=== PATIENT | male | born 1975 | race African-American/Black ===

== ENCOUNTER 2021-10-28 23:19 | Emergency (ER) | payer BC, OTHER, SELFPAY ==
--- NOTE | ~2021-10-28 | XR_ITS ---
EXAMINATION: XR chest 2V DATE: 10/28/2021 23:42 INDICATION: Shortness of breath and leg swelling TECHNIQUE: PA and lateral views of the chest were obtained. COMPARISON: Chest radiograph dated 02/24/2011 FINDINGS: The lungs remain clear with no focal airspace opacities, pulmonary edema, pleural effusion or pneumot horax. The cardiomediastinal silhouette is normal. Mild thoracolumbar levocurvature. IMPRESSION: 1. No acute cardiopulmonary disease. Reviewed, dictated and finalized at location A.
[2021-10-28 23:19] VITALS: BP 136/83; PULSE 44; RESP 20; TEMP 36.4; O2SAT 100
--- NOTE | 2021-10-28 23:21 | ECG_ITS ---
Measurements Intervals [place] Rate: 44 P: 41 [place]: 144 QRS: 4 QRSD: 101 T: 47 QT: 450 QTc: 389 Interpretive Statements SINUS BRADYCARDIA CANNOT RULE OUT SEPTAL INFARCT, AGE INDETERMINATE BORDERLINE ST-T WAVE ABNORMALITY- INFERIOR LEADS ABNORMAL ECG Electronically Signed On 10-29-2021 6:33:37 CDT by Eduardo Vogel D.O.
[2021-10-28 23:39] LABS: Basophils Absolute Auto 0.1 K/mm3 (0.0-0.1); Basophils Percent Auto 0.7 % (0.2-1.2); Eosinophils Absolute Auto 0.2 K/mm3 (0-0.3); Eosinophils Percent Auto 1.8 % (0-4.4); Hematocrit 37.8 % (42.0-52.0); Hemoglobin 12.3 g/dL (14.0-18.0); Immature Granulocyte Absolute 0.02 K/mm3 (0.00-0.031); Immature Granulocyte Percent A 0.2 % (0-0.5); Lymphocytes Absolute Auto 4.14 K/mm3 (0.9-3.2); Lymphocytes Percent Auto 41.2 % (18.3-44.2); Mean Corpuscular HGB Conc 32.5 g/dl (32-36); Mean Corpuscular Hemoglobin 29.7 pg (26-34); Mean Corpuscular Volume 91.3 fl (80-100); Mean Platelet Volume 10.3 fl (7.4-10.4); Monocytes Absolute Auto 0.9 K/mm3 (0.1-0.6); Monocytes Percent Auto 8.5 % (2.6-8.5); Neutrophils Absolute Auto 4.8 K/mm3 (1.3-6.7); Neutrophils Percent Auto 47.6 % (45.5-73.1); Platelet Count Result 197 k/mm3 (150-375); Red Blood Count 4.14 M/mm3 (4.6-6.20); Red Cell Distribution Width 11.7 % (11.5-14.5); White Blood Count 10.1 K/mm3 (4.5-10.0)
[2021-10-28 23:47] LABS: Alanine Aminotransferase 35 U/L (6-50); Albumin Level 3.9 g/dL (3.5-5.1); Alkaline Phosphatase 59 U/L (38-126); Anion Gap 9 mmol/L (8-16); Aspartate Amino Transferase 37 U/L (17-59); Bilirubin,Total 0.4 mg/dL (0.2-1.3); Blood Urea Nitrogen 14 mg/dL (9-20); Calcium 8.5 mg/dL (8.4-10.2); Carbon Dioxide 24 mmol/L (22-30); Chloride 107 mmol/L (98-107); Estimated CRCL calculation 66 ml/min; Estimated Glomerular Filt Rate > 60; Glucose 111 mg/dL (65-110); Potassium 3.4 mmol/L (3.4-5.0); Sodium 140 mmol/L (137-145)
[2021-10-29 00:26] VITALS: BP 129/81; PULSE 44; PULSE 45; RESP 18; O2SAT 100
[2021-10-29 00:45] VITALS: O2SAT 100
[2021-10-29 01:05] LABS: Magnesium 1.6 mg/dL (1.6-2.3)
[2021-10-29 01:18] LABS: NT Pro B Type Natriuretic Pept 225 pg/mL (5-100); Troponin I < 0.012 ng/mL (0.000-0.034)
[2021-10-29 01:25] VITALS: PULSE 41; RESP 20; O2SAT 98
--- NOTE | 2021-10-29 01:39 | ED.GENADULT ---
HPI - General Adult General Chief complaint: Shortness of Breath/Dyspnea Stated complaint: sob, asiya lower ext swelling Time Seen by Provider: 10/29/21 00:30 History of Present Illness HPI narrative: Patient is a 45-year-old gentleman who presents the emergency department with chief complaint of lower extremity swelling and some shortness of breath. The patient states that he felt slightly short of breath today and noticed that his legs felt a little tight. Patient states he was sitting at his desk all day and reports no chest pain no syncope no lightheadedness patient reports that he normally has a slow heart rate and his heart rate normally runs in the 40s. The patient states that he has no prior history of congestive heart failure reports no prior cardiac history. Patient states symptoms have gradually improved as he has been resting with his legs elevated. Related Data Allergies Allergy/AdvReac Type Severity Reaction Status Date / Time No Known Allergies Allergy Unverified 10/28/21 23:21 Review of Systems Review of Systems: A 10 system review of systems was completed on the patient and is negative except for what is stated in the HPI. Nursing and ancillary documentation was reviewed. Exam Narrative: GENERAL: Well-appearing, well-nourished, and in no acute distress. HEAD: Normocephalic, atraumatic. EYES: PERRLA and EOMI. ENT: Nares clear, no rhinorrhea or epistaxis. Mucous membranes moist. NECK: Supple. CHEST: Clear to auscultation. No respiratory distress. HEART: Regular rate and rhythm. No murmur heard. Normal peripheral pulses. ABDOMEN: Soft, nontender, nondistended, normal active bowel sounds. EXTREMITIES: Normal range of motion. No edema. SKIN: Warm, dry, no rash. NEURO: No focal deficits. Alert and oriented x3. PSYCH: Normal mood and affect. Course Course Emergency Course: EKG shows sinus bradycardia rate of [address] elevations or ST depressions Patient's troponin was negative chest x-ray shows no evidence of pulmonary edema. BNP was less than 300 Vital Signs Vital signs: Vital Signs Temperature 36.4 C L 10/28/21 23:19 Pulse Rate 44 L 10/28/21 23:19 Respiratory Rate 20 10/28/21 23:19 Blood Pressure 136/83 10/28/21 23:19 Pulse Oximetry 100 10/28/21 23:19 Oxygen Delivery Room Air 10/28/21 23:19 Temperature 36.4 C L 10/28/21 23:19 Pulse Rate 41 L 10/29/21 01:25 Respiratory Rate 20 10/29/21 01:25 Blood Pressure 129/81 10/29/21 00:26 Pulse Oximetry 98 10/29/21 01:25 Oxygen Delivery Room Air 10/29/21 00:45 Medical Decision Making Vital Signs Vital Signs: Vital Signs Temperature 36.4 C L 10/28/21 23:19 Pulse Rate 44 L 10/28/21 23:19 Respiratory Rate 10/28/21 23:19 Blood Pressure 136/83 10/28/21 23:19 Pulse Oximetry 100 10/28/21 23:19 Oxygen Delivery Room Air 10/28/21 23:19 Temperature 36.4 C L 10/28/21 23:19 Pulse Rate 41 L 10/29/21 01:25 Respiratory Rate 10/29/21 01:25 Blood Pressure 129/81 10/29/21 00:26 Pulse Oximetry 98 10/29/21 01:25 Oxygen Delivery Room Air 10/29/21 00:45 Lab Data Result diagrams: 10/28/21 23:32 10/28/21 23:32 Labs: Lab Results 10/28/21 10/28/21 10/28/21 Range/Units 23:32 23:32 23:32 WBC 10.1 H (4.5-10.0) K/mm3 RBC 4.14 L (4.6-6.20) M/mm3 Hgb 12.3 L (14.0-18.0) g/dL Hct 37.8 L (42.0-52.0) % MCV 91.3 (80-100) fl MCH 29.7 (26-34) pg MCHC 32.5 (32-36) g/dl RDW 11.7 (11.5-14.5) % Plt Count 197 (150-375) k/mm3 MPV 10.3 (7.4-10.4) fl Immature Gran % (Auto) 0.2 (0-0.5) % Neut % (Auto) 47.6 (45.5-73.1) % Lymph % (Auto) 41.2 (18.3-44.2) % Ponce % (Auto) 8.5 (2.6-8.5) % Eos % (Auto) 1.8 (0-4.4) % Baso % (Auto) 0.7 (0.2-1.2) % Lymph # (Auto) 4.14 H (0.9-3.2) K/mm3 Ponce # (Auto) 0.9 H (0.1-0.6) K/mm3 Eos # (Auto) 0.2 (0-0.3) K/mm3 Baso # (Auto) 0.1 (0.
[2021-10-29 01:50] VITALS: BP 138/85; PULSE 43; RESP 19; O2SAT 98
[2021-10-29] MEDS: FUROSEMIDE 20 MG TABLET PO (01:50)
== END 2021-10-29 02:00 | disposition home or self-care (01) ==
PROVIDERS: Emergency Provider Emergency Medicine; PCP Family Medicine
DX: R60.0 Localized edema (principal); R00.1 Bradycardia, unspecified; R94.31 Abnormal electrocardiogram [ECG] [EKG]
CPT/HCPCS: 36415; 71046; 80053; 83735; 83880; 84484; 85025; 93005; 99284; A9270

== ENCOUNTER 2022-08-28 01:58 | Day surgery (SDC) | payer BC, OTHER, SELFPAY ==
[2022-08-18 12:39] VITALS: BMI 29.1
--- NOTE | 2022-08-26 15:32 | P.HP_ITS ---
History of Present Illness History of Present Illness Consent: Risks, benefits, and alternatives have been discussed and questions answered. Patient agrees to proceed with procedure. Chief complaint: neoplasm screening Narrative: Hugo Gomez is a 46 year old male Referred for colon cancer screening. [facility] Social History Social History Smoking status: Never smoker Alcohol intake: never Substance use: never Substance use type: does not use Living arrangements: with family Spiritual care concerns: No Meds Home Medications and Allergies Home Medications Medication Instructions Recorded Confirmed Type No Home Medications 08/18/22 08/18/22 History Allergies Allergy/AdvReac Type Severity Reaction Status Date / Time No Known Allergies Allergy Verified 08/28/22 08:46 Assessment and Plan Assessment and plan (1) Colon cancer screening: Code(s): Z12.11 - Encounter for screening for malignant neoplasm of colon Status: Acute Assessment and Plan: Colonoscopy with possible biopsy or polypectomy or cautery or injection of substances.
[2022-08-28 08:46] VITALS: BP 116/77; PULSE 95; RESP 20; TEMP 36.5; O2SAT 100
[2022-08-28] MEDS: LACTATED RINGERS 1,000 ML 150 ML IV CONT (08:55)
--- NOTE | 2022-08-28 09:44 | P.PNAN_ITS ---
Anes - Initial Pre Proc Eval Procedure: Operation Date: 08/28/22 10:15 Proposed Procedures p Screening Colonoscopy - Marshall Danielson MD Date/Time: 08/28/22 09:44 Surgeon: Marshall Danielson MD Pre Op Diagnosis: neoplasm screening Patient Data Age: 46 Gender: M Height: 1.73 m Weight: 88.2 kg Last Vital Signs Temp 97.7 F 08/28/22 08:46 Pulse 95 08/28/22 08:46 Resp 20 08/28/22 08:46 BP 116/77 08/28/22 08:46 Pulse Ox 100 08/28/22 08:46 O2 Del Method Room Air 08/28/22 08:46 Allergies Allergy/AdvReac Type Severity Reaction Status Date / Time No Known Allergies Allergy Verified 08/28/22 08:46 Home Medications Medication Instructions Recorded Confirmed Type No Home Medications 08/18/22 08/18/22 History Patient hx anesthesia problems: none Family hx anesthesia problems: none Results Review: All pre-operative results and documents have been reviewed as part of the pre- operative evaluation. [facility] Social History Social History Smoking status: Never smoker Alcohol intake: never Substance use: never Substance use type: does not use Living arrangements: with family Spiritual care concerns: No Anes - Eval Final PreProcedure Day of Procedure 08/28/22 09:44 Patient weight: overweight Heart: regular rate and rhythm Lungs: clear to auscultation Airway: Mallampati scale class II Neurological: alert and oriented Last oral intake: >/= 8 hours ASA classification: II Emergent: no Anesthetic plan: proceed Anesthesia type and monitoring: general GIVS and standard monitoring Results Review: All pre-operative results and documents have been reviewed as part of the pre- operative evaluation. Informed Consent: The patient's anesthetic plan and its attendant risks and benefits were discussed with the patient/family/POA. Questions were solicited and answers provided to the satisfaction of the patient/family/POA.
[2022-08-28] MEDS: SIMETHICONE ORAL SUSPENSION 20 MG/0.3 ML 30 ML BOTTLE 0.6 ML IRRIGATION (10:12)
[2022-08-28 10:18] VITALS: BP 110/72; PULSE 83; RESP 20; O2SAT 98
[2022-08-28 10:28] VITALS: BP 107/72; PULSE 78; RESP 33; O2SAT 97
[2022-08-28 10:38] VITALS: BP 115/74; PULSE 79; RESP 24; O2SAT 98
== END 2022-08-28 10:49 | disposition home or self-care (01) ==
PROVIDERS: PCP Family Medicine; Visit Provider Internal Medicine Gastroenterology
PROC: 0DJD8ZZ Inspection of Lower Intestinal Tract, Via Natural or Artificial Opening Endoscopic (ICD-10-PCS; CPT 45378; principal; 2022-08-28 10:15)
DX: Z12.11 Encounter for screening for malignant neoplasm of colon (principal); K62.1 Rectal polyp
CPT/HCPCS: 45380; 88305; J2704; J7120